=== PATIENT | male | born 1960 | race Caucasian/White ===

== ENCOUNTER 2018-09-14 07:31 | Day surgery (SDC) | payer BC ==
[~2018-09-14] VITALS: Ht 185.4 cm; Wt 115.4 kg
[~2018-09-14 07:31] MED LIST: CEPH500 PO; GLUC500; HYDACE5 PO; LOSARTAN POTAS100 MG PO; LOVA40 PO; MSM1000; MULVITMIND; MULVITMIND PO; ONDA4ODT MM; Transderm-Scop1 EACH TOP
--- NOTE | 2018-09-14 08:22 | NUR ---
[facility] Day [facility] Surgical site prepped with 2% Chlorhexidine cloth wipe. History, Chart, Medications and Allergies reviewed before start of procedure. Lungs clear T/O to Auscultation. Patient confirms NPO status and agrees with scheduled surgery. Pre-Op teaching done. Pt verbalizes understanding. Patient reports completing Chlorhexadine shower X2 prior to admission to hospital.
--- NOTE | 2018-09-14 10:15 | NUR ---
RECIEVED PATIENT INTO STEP VSS ALERT ORIENTED. DRSSING INTACT WITH ABDOMINAL BINDER IN PLACE OVER.
--- NOTE | 2018-09-14 10:39 | NUR ---
WENT OVER DISCHARGE INFORMATION WITH PATIENT AND ANSWERED ALL QUESTIONS. PATIENT INFORMED PATIENT ONCE AWAKE ENOUGH COULD GET READY AND DRESSED TO GO HOME. VSS
--- NOTE | 2018-09-14 10:55 | NUR ---
PATIENT GETTING DRESSED AT THIS TIME.
--- NOTE | 2018-09-14 11:02 | NUR ---
Discharge instructions reviewed with patient. Patient verbalizes understanding. Copy given to patient to take home. Patient States Post-Procedure ride home has been arranged. Discharged via wheelchair to private car for ride home.
== END 2018-09-14 23:08 | disposition home or self-care (01) ==
LOC: ORSCMMR 07:31 → ORD 08:15 → ORSCMMR 09:15 → ORD 10:00 → ORSCMMR 23:08
PROVIDERS: Surgery
PROC: 0WUF0JZ Supplement Abdominal Wall with Synthetic Substitute, Open Approach (ICD-10-PCS; principal; 2018-09-14 09:15)
DX: K42.0 Umbilical hernia with obstruction, without gangrene (principal); I10 Essential (primary) hypertension; Z79.899 Other long term (current) drug therapy
CPT/HCPCS: C1781; J0690; J1100; J2250; J2405; J2704; J3010; J7120

== ENCOUNTER 2020-04-01 14:55 | Emergency (ER) | payer BC ==
[~2020-04-01] VITALS: Ht 188 cm; Wt 92.5 kg
[2020-04-01 17:52] LABS: BASOPHILS ABSOLUTE AUTO 0.04 K/mm3 (0.00-0.23); BASOPHILS PERCENT AUTO 0 % (0-2); EOSINOPHILS ABSOLUTE AUTO 0.29 K/mm3 (0.00-0.68); EOSINOPHILS PERCENT AUTO 3 % (0-6); Hematocrit 40.5 % (37.0-53.0); Hemoglobin 12.9 g/dL (13.5-17.5); IMMATURE GRAN ABSOLUTE AUTO 0.03 K/mm3 (0.00-0.10); IMMATURE GRAN PERCENT AUTO 0 % (0-1); LYMPHOCYTES PERCENT AUTO 15 % (21-46); MONOCYTES ABSOLUTE AUTO 0.92 K/mm3 (0.16-1.47); MONOCYTES PERCENT AUTO 9 % (4-13); Mean Corpuscular HGB 28.9 pg (26.0-34.0); Mean Corpuscular HGB Conc 31.9 g/dL (31.5-36.5); Mean Corpuscular Volume 91 fL (80-100); Mean Platelet Volume 12.8 fL (9.1-12.4); NEUTROPHILS ABSOLUTE AUTO 7.84 K/mm3 (1.96-9.15); NEUTROPHILS PERCENT AUTO 73 % (41-73); Platelet Count 245 K/mm3 (150-400); RDW Coefficient Variation 11.8 % (11.7-14.2); Red Blood Cell Count 4.47 M/mm3 (4.30-5.90); White Blood Cell Count 10.72 K/mm3 (4.00-11.30)
[2020-04-01 18:04] LABS: Alanine Aminotransfer (ALT/SGP 57 U/L (12-78); Albumin, Blood 3.2 g/dL (3.4-5.0); Albumin/Globulin Ratio 0.8 (0.8-1.8); Alk Phos 127 U/L (50-136); Anion Gap 4 mmol/L (6-16); Aspartate Aminotrans (AST/SGOT 28 U/L (12-37); Blood Urea Nitrogen 9 mg/dL (8-24); Bun/Creatinine Ratio 14.5 (12.0-20.0); CO2, Blood 29 mmol/L (21-32); Calcium, Blood 9.1 mg/dL (8.5-10.1); Chloride, Blood 102 mmol/L (98-108); Creatinine, Blood 0.62 mg/dL (0.60-1.20); Globulin, Blood 4.1 g/dL (2.2-4.0); Glomerular Filtration Rate >60 (60-); Glucose, Blood 116 mg/dL (70-99); Potassium, Blood 4.1 mmol/L (3.5-5.5); Sodium, Blood 135 mmol/L (136-145); Total Protein, Blood 7.3 g/dL (6.4-8.2)
== END 2020-04-01 18:59 | disposition home or self-care (01) ==
LOC: ER 14:55
PROVIDERS: Emergency Medicine
DX: K59.00 Constipation, unspecified (principal); C25.9 Malignant neoplasm of pancreas, unspecified; Z79.899 Other long term (current) drug therapy; Z88.2 Allergy status to sulfonamides
CPT/HCPCS: 36415; 74018; 80053; 83690; 85025; 99283-25; A9270

== ENCOUNTER 2020-06-07 23:24 | Emergency (ER) | payer BC ==
[~2020-06-07] VITALS: Ht 185.4 cm; Wt 81.7 kg
[2020-06-08] MEDS ORDERED: [UNRECOGNIZED DRUG - OTHER] (00:20)
[2020-06-08] MEDS ORDERED: CHEMOTHERAPY (00:20)
== END 2020-06-08 00:29 | disposition home or self-care (01) ==
LOC: ER 23:24
DX: R04.0 Epistaxis (principal); Z88.2 Allergy status to sulfonamides; Z79.899 Other long term (current) drug therapy
CPT/HCPCS: 99283

== ENCOUNTER 2020-07-05 05:00 | Emergency (ER) | payer BC ==
[~2020-07-05] VITALS: Ht 182.9 cm; Wt 78.0 kg
[~2020-07-05 05:00] MED LIST changes: +CHEMOTHERAPY; +[UNRECOGNIZED DRUG - OTHER]
== END 2020-07-05 07:09 | disposition home or self-care (01) ==
LOC: ER 05:00
DX: R04.0 Epistaxis (principal); Z88.2 Allergy status to sulfonamides; Z79.899 Other long term (current) drug therapy
CPT/HCPCS: 99283-25; A9270